=== PATIENT | female | born 1965 | race Caucasian/White ===

== ENCOUNTER 2017-12-15 08:17 | Day surgery (SDC) | payer OTHER, SELFPAY ==
--- NOTE | 2017-12-15 07:03 | W.COLOREPORT ---
Colonoscopy Report Date of procedure: 12/15/17 Pre-op diagnosis general: Screening Post-op diagnosis procedure note: other (Grade I internal hemorrhoids/ mild diverticulosis) Procedure: Colonoscopy Surgeon: Dorota Henriquez Anesthesia proc note operative: MAC (Ra Matta CRNA) Estimated blood loss (mL): 0 Pathology: none sent Complications: None Disposition: same day Indications: Mrs. Maxwell is here today for a screening colonoscopy. There have been no changes in her medical history. Risks, benefits and complictaions were reviewed with the patient and she wished to proceed. Prep: Miralax/Dulcolax Procedure Start Time: 09:58 Procedure End Time: 10:22 Retraction Time: 15 minutes Findings: Grade I internal hemorrhoids and mild sigmoid diverticulosis Procedure Description: After informed consent was obtained the patient was taken to the procedure room and placed in a left decubitous position. Monitors were applied and a time out was done. The patients name, date of , procedure, allergies to medications and metal in their body was reviewed. The patient was then sedated. Once sedated and comfortable a rectal exam was done. External exam was normal. Internal exam revealed a normal sphincter tone and no palpable masses. The scope was then introduced and retrofelexed. Grade I internal hemorrhoids were identified. The scope was then advanced to the cecum without difficulty. The TI and appendiceal orifice were identified. The prep was adequate. The scope was then slowly retracted over 15 minutes back into the rectum. The scope was removed and the patient was woken up and taken back to Same day surgery in stable condition. Mild sigmoid diverticulosis was noted. The patient tolerated the procedure well and there were no immediate complications. Follow up: The patient should follow up in 10 years unless they develop changes in bowel habits or other new gastrointestinal complaints.
--- NOTE | 2017-12-15 07:07 | PDOC.DSDIS_ITS ---
Discharge Plan Disposition Patient Disposition: HOME Condition: Good Discharge Details Reason For Visit: Colonoscopy Attending Provider: Dorota Henriquez Primary Care Provider: ZACH DAVIS Home Meds and New Rx's Prescriptions: Discontinued polyethylene glycol 3350 17 gram powder in packet 255 g PO DAILY Qty: 15 RF: 0 bisacodyl [Dulcolax (bisacodyl)] 5 mg tablet,delayed release (DR/EC) 5 mg PO ONCE Qty: 4 RF: 0 No Action multivitamin [Daily Multiple] 1 EACH tablet 1 ea PO DAILY RF: 0 Discharge Instructions Instructions: Colonoscopy (DC), Diverticulosis (DC), Hemorrhoids (DC) Additional Instructions: Findings: mild diverticulosis Grade I internal hemorrhoids Follow up: 10 years New medications: none Please call if you develop: fevers >101.5 Nausea or Vomiting Abdominal pain that is not transient 1. Because there will be medication in your system for the next 24 hours, you may feel a little sleepy. Your coordination will be affected. Therefore: a. Do not drive or operate dangerous equipment for 24 hours. b. Do not drink alcohol beverages for 24 hours (not even beer). c. Plan to go home and rest for the day. 2. Generally there are no restrictions on your activity after a day or so has gone by, but you may feel a bit fatigued for a few days. 3 After you arrive home you may have a light meal and return to a normal diet as you can tolerate it without feeling sick to your stomach. 4. After surgery, you may feel pain or discomfort. This should be only transient , but if it persists please contact your doctor. 5. If there are any questions regarding the findings of your procedure, please feel free to contact your doctor. 6. If you are unable to contact your doctor with a problem, contact the hospital at [phone]. 7. Continue all your regular medications unless directed otherwise. I understand the above instructions and have no questions. Signature of Patient or Responsible Adult Escort Date/Time Name of Responsible Adult Escort Signature of Nurse Date/Time Activity:: Activity as Tolerated Diet:: High Fiber diet Discharge Orders Discharge Orders: Discharge Order (Routine); Ordered 12/15/17 Ordered By: Dorota Henriquez
[2017-12-15 08:41] VITALS: BP 112/73; PULSE 77; RESP 16; TEMP 37.1; O2SAT 96
[2017-12-15] MEDS: Lactated Ringers 1,000 ML 80 ML IV (09:05)
[2017-12-15 10:47] VITALS: BP 102/56; PULSE 68; RESP 16; TEMP 37.3; O2SAT 97
== END 2017-12-15 11:21 | disposition home or self-care (01) ==
LOC: SUR 08:17
PROVIDERS: PCP Family Medicine; Visit Provider Surgery
PROC: 0DJD8ZZ Inspection of Lower Intestinal Tract, Via Natural or Artificial Opening Endoscopic (ICD-10-PCS; CPT 45378; principal; 2017-12-15 09:45)
DX: Z12.11 Encounter for screening for malignant neoplasm of colon (principal); K57.30 Diverticulosis of large intestine without perforation or abscess without bleeding; K64.0 First degree hemorrhoids
CPT/HCPCS: 45378

== ENCOUNTER 2020-12-29 11:40 | Outpatient (REF) | payer OTHER, SELFPAY ==
--- NOTE | 2020-12-29 11:15 | PAPFT_PTH ---
PATIENT: Juan Carlos Maxwell LOC: [facility]#:[id number] AGE/SX: 55/F ROOM: RE12/29/[address]: Savanah Ring : 1965 BED: DIS: 12/29/2020 SPEC #: [id number] RECD: 12/29/20 17:01 STATUS: SHILPI REValerio #: [id number] TAO: 12/29/20 11:[address]: Savanah Ring DEPT: [facility] Cytology RECD BY: Xochitl Valdez ENTERED: 12/29/20 17:01 SP TYPE: PAPFT OTHR DR: Unknown,Unknown Tissues: 1 - CX/ENDOCX FOR PAP SMEARS Procedures: PAP THIN PREP/[facility] Screening HPV DNA PROBE Comments: [id number]
== END 2020-12-29 11:41 | disposition home or self-care (01) ==
LOC: LBN 11:40
PROVIDERS: Visit Provider Obstetrics & Gynecology Gynecology
DX: Z12.4 Encounter for screening for malignant neoplasm of cervix (principal); Z01.419 Encounter for gynecological examination (general) (routine) without abnormal findings; Z11.51 Encounter for screening for human papillomavirus (HPV)
CPT/HCPCS: 88142; 87624

== ENCOUNTER 2024-02-06 11:51 | Outpatient (REF) | payer BC, SELFPAY ==
--- NOTE | 2024-02-06 11:45 | PAPFT_PTH ---
PATIENT: Juan Carlos Maxwell LOC: [facility]#:[id number] AGE/SX: 58/F ROOM: RE02/06/[address]: Savanah Ring : 1965 BED: DIS: 02/06/2024 SPEC #: [id number] RECD: 02/06/24 13:00 STATUS: SHILPI FUENTES #: [id number] TAO: 02/06/24 11:[address]: Savanah Ring DEPT: [facility] Cytology RECD BY: Ana Rodgers ENTERED: 02/06/24 13:00 SP TYPE: PAPFT OTHR DR: Angie Zhao, X RAY CONSULTANT Tissues: 1 - CX/ENDOCX FOR PAP SMEARS Procedures: PAP THIN PREP/[facility] Screening HPV DNA PROBE Comments: [id number] (HPV 16 & 18/45)
== END 2024-02-06 11:52 | disposition home or self-care (01) ==
LOC: LBN 11:51
PROVIDERS: PCP Nurse Practitioner Family; Visit Provider Obstetrics & Gynecology Gynecology
DX: Z12.31 Encounter for screening mammogram for malignant neoplasm of breast (principal); Z01.419 Encounter for gynecological examination (general) (routine) without abnormal findings
CPT/HCPCS: 88142; 87624